=== PATIENT | female | born 1970 | race Caucasian/White ===

== ENCOUNTER 2020-02-23 18:16 | Emergency (ER) | payer MEDICAID ==
[~2020-02-23] VITALS: Ht 157.5 cm; Wt 95.6 kg
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
[2020-02-23 19:35] VITALS: BP 145/88
== END 2020-02-23 19:38 | disposition home or self-care (01) ==
LOC: ED 19:16
DX: G89.11 Acute pain due to trauma (principal); M25.562 Pain in left knee
CPT/HCPCS: 99282